=== PATIENT | female | born 2000 | race Caucasian/White ===

== ENCOUNTER 2020-09-28 13:47 | Emergency (ER) | payer OTHER ==
[~2020-09-28 13:47] MED LIST: FLOMAX0.4 MG PO; LEVAQUIN750 MG PO; NORCO 5-325 TA1 EACH PO; ONDANSETRON ODT4 MG SL; PERCOCET 5-3251 EACH PO; ZOFRAN8 MG PO
[2020-09-28 14:37] LABS: BASOPHIL 0.3 % (0-2); EOSINOPHIL 3.7 % (0-5); HCT 37.3 % (37.0-47.0); HGB 12.3 g/dl (12.5-16.0); LYMPHOCYTE 18.5 % (15-48); MCH 30.2 pg (25.0-31.0); MCV 91.6 fL (78.0-100.0); MONOCYTE 6.2 % (0-12); MPV 8.5 fL (6.0-9.5); NEUTROPHIL 71.2 % (41-80); NRBC 0; PLT 319 K/uL (150-400); RBC 4.07 M/uL (4.20-5.40); RDW 12.2 % (11.5-14.0); WBC 7.3 K/uL (4.0-10.5)
[2020-09-28 15:01] LABS: AMPHETAMINES NEGATIVE (NEGATIVE); BARBITURATES NEGATIVE (NEGATIVE); BILIRUBIN NEGATIVE (NEGATIVE); BLOOD NEGATIVE Ery/uL (NEGATIVE); CLARITY CLEAR (CLEAR); COLOR YELLOW (YELLOW); ECSTASY (MDMA) NEGATIVE (NEGATIVE); GLUCOSE (U) NORMAL (NORMAL); LEUKOCYTES NEGATIVE Leu/uL (NEGATIVE); MARIJUANA (THC) NEGATIVE (NEGATIVE); METHADONE NEGATIVE (NEGATIVE); NITRITE NEGATIVE (NEGATIVE); OPIATES NEGATIVE (NEGATIVE); OXYCODONE NEGATIVE (NEGATIVE); PROTEIN 1+ mg/dL (NEGATIVE); SPECIFIC GRAVITY >=1.030 (1.001-1.030); UROBILINOGEN 0.2 mg/dL (0.2-1.0)
[2020-09-28 15:02] LABS: BUN/CREAT RATIO (CALC) 10.6 RATIO; CREATININE 0.94 mg/dL (0.51-0.95); POTASSIUM 3.9 mmol/L (3.5-5.1)
[2020-09-28 15:12] LABS: BACTERIA 1+
== END 2020-09-28 15:53 | disposition home or self-care (01) ==
LOC: FER 13:47
PROVIDERS: Emergency Medicine
DX: R56.9 Unspecified convulsions (principal); Z88.1 Allergy status to other antibiotic agents; Z79.899 Other long term (current) drug therapy
CPT/HCPCS: 36415; 80048; 80305; 81001; 85025; 99284